=== PATIENT | male | born 1935 | race Hispanic/Latino ===

== ENCOUNTER 2017-10-20 12:41 | Outpatient (CLI) | payer MEDICARE, OTHER ==
--- NOTE | 2017-10-20 13:58 | XRay Report ---
CHEST XRAY, 2 VIEWS: History: Cough. Findings: There is mild diffuse interstitial coarsening. The lungs are hyperexpanded but clear. No infiltrate, pleural fluid or pneumothorax is detected. The cardiac silhouette and pulmonary vasculature are within normal limits for technique. The bony thorax is unremarkable. IMPRESSION: Changes consistent with COPD. No acute cardiopulmonary process.
== END 2017-10-20 12:42 | disposition home or self-care (01) ==
LOC: SPVIMAG 12:41
PROVIDERS: ATTEND Internal Medicine
DX: R05 Cough (principal)
CPT/HCPCS: 71046